=== PATIENT | male | born 1945 | race Native Hawaiian/Other Pacific Islander ===

== ENCOUNTER 2017-07-09 20:26 | Inpatient (IN) | payer MEDICARE, MEDICAID ==
[~2017-07-09] VITALS: Ht 182.9 cm; Wt 104.6 kg
[~2017-07-09 20:26] MED LIST: ATOR20TA50 PO; CANA100T PO; DOXE75CA2 PO; GAB100C PO; GLIP-116 PO; HYDR-531 PO; LISI-646 PO; METF-372 PO
[2017-07-09 22:49] LABS: Basophils # (auto) 0 uL; Basophils % (auto) 0.2 % (0.0-2.0); Eosinophils # (auto) 0.2 uL; Eosinophils % (auto) 1.5 % (0.0-7.0); Hematocrit 36.5 % (41.0-53.0); Hemoglobin 12.2 g/dL (13.5-17.5); Lymphocytes % (auto) 13.6 % (10.0-50.0); Mean Corpuscular Hemoglobin 29.5 pg (28.0-32.0); Mean Corpuscular Hgb Conc. 33.5 g/dL (32.0-36.0); Mean Corpuscular Volume 88.1 fL (80.0-100.0); Monocytes % (auto) 6.7 % (0.0-12.0); Neutrophils # (auto) 11.3 uL; Nucleated Red Blood Cells % 0.1 %; Platelet Count (auto) 226 10^3/uL (140-450); Red Blood Cells 4.15 10^6/uL (4.5-5.90); Red Cell Distribution Width 12.6 % (11.8-14.3); White Blood Cell 14.5 10^3/uL (4.4-10.8)
[2017-07-09 23:02] LABS: Alanine Aminotransferase 13 U/L (16-61); Albumin 2.8 g/dL (3.4-5.0); Anion Gap 12 (5-15); Aspartate Aminotransferase 19 U/L (15-37); BUN/Creatinine Ratio 12.9; Blood Urea Nitrogen 16 mg/dL (7-18); Calcium 8.4 mg/dL (8.5-10.1); Carbon Dioxide 22 mmol/L (21-32); Chloride 100 mmol/L (98-107); GFR African American 74 mL/min; GFR Non-African American 61 mL/min; Glucose 164 mg/dL (74-106); Potassium 4.2 mmol/L (3.5-5.1); Sodium 134 mmol/L (136-145)
[2017-07-09 23:07] LABS: Alkaline Phosphatase 93 U/L (45-117); Bilirubin, Total 0.4 mg/dL (0.2-1.0)
[2017-07-10 01:44] LABS: Urine Bacteria NONE SEEN /hpf (None Seen); Urine Blood Negative /uL (Negative); Urine Specific Gravity 1.025 (1.001-1.035); Urine WBC 1 /hpf (0 - 3)
[2017-07-10] MEDS ORDERED: LEVOFLOXACIN 750MG 150 ML IV ONE (02:30)
[2017-07-10] MEDS ORDERED: ONDANSETRON HCL 4 MG/2 ML VIAL IV PRN (05:30)
[2017-07-10] MEDS ORDERED: ACETAMINOPHEN 325 MG TAB PO PRN (05:30)
[2017-07-10] MEDS ORDERED: DOCUSATE SOD 100 MG CAP PO PRN (05:30)
[2017-07-10] MEDS ORDERED: TEMAZEPAM 15 MG CAP PO PRN (05:30)
[2017-07-10] MEDS ORDERED: DEXTROSE (50%) 50ML SYRG IV PRN (05:30)
[2017-07-10] MEDS: SODIUM CHLORIDE 0.9% 1,000 ML IV SCH ×2 (06:03→21:26)
[2017-07-10] MEDS: ACCU-CHEK COMFORT CURVE STRIP VI SCH ×3 (06:03→18:10)
[2017-07-10] MEDS: InsuLIN REG 1unit/0.01ml Soln (100units/ml) SC SCH ×3 (06:08→18:00)
[2017-07-10] MEDS: glipiZIDE 5 MG TAB PO SCH (07:21)
[2017-07-10] MEDS: ENOXAPARIN SOD 40 MG/0.4 ML SYRINGE SC SCH (09:08)
[2017-07-10] MEDS: FAMOTIDINE 20 MG TAB PO SCH ×2 (09:08→21:25)
[2017-07-10] MEDS: LISINOPRIL 20 MG TAB PO SCH (09:10)
[2017-07-10] MEDS: LEVOFLOXACIN 750MG 150 ML IV SCH (09:15)
[2017-07-10] MEDS: IPRATROPIUM BROM 0.5 MG/2.5ML INH SOL NEB SCH ×3 (14:01→18:10)
[2017-07-10] MEDS: ALBUTEROL SULF 2.5 MG/0.5ML(0.5%) NEB SOLN NEB SCH ×3 (14:01→18:10)
[2017-07-10 20:30] VITALS: BP 141/73
[2017-07-10 20:35] VITALS: BP 141/73
[2017-07-10] MEDS: ATORVASTATIN 20 MG TAB PO SCH (21:26)
[2017-07-11] MEDS: ACCU-CHEK COMFORT CURVE STRIP VI SCH ×4 (00:17→21:18)
[2017-07-11] MEDS: InsuLIN REG 1unit/0.01ml Soln (100units/ml) SC SCH ×4 (06:00→22:00)
[2017-07-11] MEDS: ALBUTEROL SULF 2.5 MG/0.5ML(0.5%) NEB SOLN NEB SCH ×4 (06:27→19:40)
[2017-07-11] MEDS: IPRATROPIUM BROM 0.5 MG/2.5ML INH SOL NEB SCH ×4 (06:27→19:40)
[2017-07-11] MEDS: glipiZIDE 5 MG TAB PO SCH (06:38)
[2017-07-11 06:51] LABS: Basophils # (auto) 0 uL; Basophils % (auto) 0.3 % (0.0-2.0); Eosinophils # (auto) 0.2 uL; Eosinophils % (auto) 2.9 % (0.0-7.0); Hematocrit 34.7 % (41.0-53.0); Hemoglobin 11.8 g/dL (13.5-17.5); Lymphocytes # (auto) 1.7 uL; Lymphocytes % (auto) 22.2 % (10.0-50.0); Mean Corpuscular Hemoglobin 29.9 pg (28.0-32.0); Mean Corpuscular Volume 87.9 fL (80.0-100.0); Monocytes # (auto) 0.7 uL; Monocytes % (auto) 8.5 % (0.0-12.0); Neutrophils # (auto) 5.1 uL; Neutrophils % (auto) 66.1 % (37.0-80.0); Platelet Count (auto) 248 10^3/uL (140-450); Red Blood Cells 3.95 10^6/uL (4.5-5.90); Red Cell Distribution Width 12.5 % (11.8-14.3); White Blood Cell 7.7 10^3/uL (4.4-10.8)
[2017-07-11 06:57] LABS: Potassium 4.3 mmol/L (3.5-5.1)
[2017-07-11 07:05] LABS: Albumin 2.4 g/dL (3.4-5.0); BUN/Creatinine Ratio 14.4; Calcium 8.4 mg/dL (8.5-10.1)
[2017-07-11 07:07] LABS: Bilirubin, Total 0.3 mg/dL (0.2-1.0); Total Protein 7.3 g/dL (6.4-8.2)
[2017-07-11 08:00] VITALS: BP 124/68
[2017-07-11 08:27] VITALS: BP 124/68
[2017-07-11] MEDS: LEVOFLOXACIN 750MG 150 ML IV SCH (11:07)
[2017-07-11] MEDS: SODIUM CHLORIDE 0.9% 1,000 ML IV SCH (11:07)
[2017-07-11] MEDS: FAMOTIDINE 20 MG TAB PO SCH ×2 (11:08→21:18)
[2017-07-11] MEDS: LISINOPRIL 20 MG TAB PO SCH (11:08)
[2017-07-11] MEDS: ENOXAPARIN SOD 40 MG/0.4 ML SYRINGE SC SCH (11:08)
[2017-07-11 11:47] VITALS: BP 127/71
[2017-07-11] MEDS ORDERED: DEXTROSE (50%) 50ML SYRG IV PRN (12:30)
[2017-07-11] MEDS: HYDROcodone-ACET 5/325MG TAB PO PRN ×2 (15:52→22:07)
[2017-07-11 16:59] VITALS: BP 145/74
[2017-07-11 20:00] VITALS: BP 142/78
[2017-07-11] MEDS: ATORVASTATIN 20 MG TAB PO SCH (21:18)
[2017-07-11 22:00] VITALS: BP 142/78
[2017-07-12] MEDS: HYDROcodone-ACET 5/325MG TAB PO PRN (03:03)
[2017-07-12] MEDS: SODIUM CHLORIDE 0.9% 1,000 ML IV SCH (03:03)
[2017-07-12 05:00] VITALS: BP 123/72
[2017-07-12] MEDS: ACCU-CHEK COMFORT CURVE STRIP VI SCH ×2 (06:11→11:30)
[2017-07-12] MEDS: glipiZIDE 5 MG TAB PO SCH (06:11)
[2017-07-12] MEDS: InsuLIN REG 1unit/0.01ml Soln (100units/ml) SC SCH ×2 (06:12→11:30)
[2017-07-12 06:44] LABS: Basophils # (auto) 0 uL; Basophils % (auto) 0.5 % (0.0-2.0); Eosinophils # (auto) 0.3 uL; Eosinophils % (auto) 5.6 % (0.0-7.0); Hematocrit 35.2 % (41.0-53.0); Hemoglobin 11.9 g/dL (13.5-17.5); Lymphocytes # (auto) 1.8 uL; Mean Corpuscular Hemoglobin 29.7 pg (28.0-32.0); Mean Corpuscular Hgb Conc. 33.7 g/dL (32.0-36.0); Mean Corpuscular Volume 88.3 fL (80.0-100.0); Monocytes # (auto) 0.7 uL; Monocytes % (auto) 12.3 % (0.0-12.0); Neutrophils # (auto) 2.9 uL; Neutrophils % (auto) 50.6 % (37.0-80.0); Platelet Count (auto) 281 10^3/uL (140-450); Red Blood Cells 3.99 10^6/uL (4.5-5.90); Red Cell Distribution Width 12.4 % (11.8-14.3); White Blood Cell 5.8 10^3/uL (4.4-10.8)
[2017-07-12] MEDS: IPRATROPIUM BROM 0.5 MG/2.5ML INH SOL NEB SCH ×5 (06:58→14:03)
[2017-07-12] MEDS: ALBUTEROL SULF 2.5 MG/0.5ML(0.5%) NEB SOLN NEB SCH ×5 (06:58→14:03)
[2017-07-12 07:15] LABS: Magnesium 2.5 mg/dL (1.6-2.6)
[2017-07-12 08:00] VITALS: BP 121/71
[2017-07-12] MEDS: FAMOTIDINE 20 MG TAB PO SCH (10:00)
[2017-07-12] MEDS: ENOXAPARIN SOD 40 MG/0.4 ML SYRINGE SC SCH (10:00)
[2017-07-12] MEDS: LISINOPRIL 20 MG TAB PO SCH (10:19)
[2017-07-12] MEDS: LEVOFLOXACIN 750MG 150 ML IV SCH (10:19)
[2017-07-12] MEDS ORDERED: LEVO750T2 PO (11:26)
[2017-07-12 11:37] VITALS: BP 139/75
[2017-07-12 12:42] VITALS: BP 121/71
[2017-07-13] MEDS ORDERED: LEVOFLOXACIN 250 MG TAB PO SCH (10:00)
== END 2017-07-12 14:45 | disposition home health service (06) | DRG 871 ==
LOC: EDBD 20:26 → ER 20:29 → OVERFLOW 20:30 → EAST 07-10 20:10
PROVIDERS: ADMIT Nurse Practitioner; ATTEND Internal Medicine
DX: A41.9 Sepsis, unspecified organism (principal); J18.9 Pneumonia, unspecified organism; E11.65 Type 2 diabetes mellitus with hyperglycemia; N39.0 Urinary tract infection, site not specified; E66.01 Morbid (severe) obesity due to excess calories; I10 Essential (primary) hypertension; E78.5 Hyperlipidemia, unspecified; Z68.31 Body mass index [BMI] 31.0-31.9, adult
CPT/HCPCS: 36415; 71045; 71046; 80053; 80061; 81001; 82962; 83036; 83605; 83735; 83880; 84443; 84484; 85025; 85379; 87400; 93005; 94640; 96365; 96366; 96372; 96375; J1815; J1956

== ENCOUNTER 2022-03-27 16:48 | Emergency (ER) | payer MEDICARE, MEDICAID ==
[~2022-03-27] VITALS: Ht 188 cm; Wt 105.5 kg
[~2022-03-27 16:48] MED LIST changes: -GLIP-116 PO; +GLIP10TA9 PO; +LEVO750T8 PO; -LISI-646 PO; +LISI20TA28 PO
[2022-03-27 18:42] LABS: Basophils # (auto) 0.1 10 ^3/uL (0-0.2); Basophils % (auto) 0.8 % (0.0-2.0); Eosinophils # (auto) 0.2 10 ^3/uL (0-0.8); Eosinophils % (auto) 2.4 % (0.0-7.0); Hematocrit 41.5 % (41.0-53.0); Hemoglobin 13.9 g/dL (13.5-17.5); Lymphocytes # (auto) 2.4 10 ^3/uL (0.4-5.4); Lymphocytes % (auto) 28.8 % (10.0-50.0); Mean Corpuscular Hemoglobin 28.7 pg (28.0-32.0); Mean Corpuscular Hgb Conc. 33.4 g/dL (32.0-36.0); Monocytes # (auto) 0.7 10 ^3/uL (0-1.3); Monocytes % (auto) 8.8 % (0.0-12.0); Neutrophils % (auto) 59.2 % (37.0-80.0); Nucleated Red Blood Cells % 0.1 %; Red Blood Cells 4.82 10^6/uL (4.5-5.90); Red Cell Distribution Width 13.1 % (11.8-14.3); White Blood Cell 8.5 10^3/uL (4.4-10.8)
[2022-03-27 18:59] LABS: Albumin 3.8 g/dL (3.4-5.0); Calcium 9.1 mg/dL (8.5-10.1); Magnesium 2.2 mg/dL (1.6-2.6)
[2022-03-27 19:08] LABS: BUN/Creatinine Ratio 9.7; Bilirubin, Total 0.3 mg/dL (0.2-1.0); Total Protein 7.9 g/dL (6.4-8.2)
[2022-03-27 20:20] LABS: Urine Bacteria NONE SEEN /hpf (None Seen); Urine Blood Negative /uL (Negative); Urine WBC 3 /hpf (0 - 3)
[2022-03-27] MEDS ORDERED: cefTRIAXone 1GM/50ML D5W 50 ML IV ONE (20:30)
[2022-03-27] MEDS ORDERED: HYDROcodone-ACET 5/325MG TAB PO ONE (20:30)
[2022-03-27] MEDS ORDERED: LACTATED RINGER'S 2,000 ML IV ONE (20:30)
[2022-03-27 22:30] VITALS: BP 165/82
== END 2022-03-27 23:13 | disposition home or self-care (01) ==
LOC: EDBD 16:50 → ER 16:50
DX: N17.9 Acute kidney failure, unspecified (principal); N32.0 Bladder-neck obstruction; I10 Essential (primary) hypertension; E11.9 Type 2 diabetes mellitus without complications; Z79.899 Other long term (current) drug therapy
CPT/HCPCS: 36415; 36600; 71045; 74176; 80053; 81001; 82805; 83605; 83615; 83690; 83735; 83880; 84484; 85025; 93005; 96365; 99285; J0696; J7030

== ENCOUNTER 2023-02-21 10:33 | Emergency (ER) | payer MEDICARE, MEDICAID ==
[~2023-02-21] VITALS: Ht 182.9 cm; Wt 100.0 kg
[~2023-02-21 10:33] MED LIST changes: -LISI20TA28 PO; +LISI20TA56 PO
[2023-02-21] MEDS ORDERED: IBUPROFEN 400 MG TAB PO ONE (13:45)
[2023-02-21 15:10] VITALS: BP 162/88; PULSE 90; RESP 18; TEMP 97.9; O2SAT 98
== END 2023-02-21 16:23 | disposition home or self-care (01) ==
LOC: EDBD 10:33 → ER 10:33
DX: S46.912A Strain of unspecified muscle, fascia and tendon at shoulder and upper arm level, left arm, initial encounter (principal); E11.9 Type 2 diabetes mellitus without complications; I10 Essential (primary) hypertension; X58.XXXA Exposure to other specified factors, initial encounter; Y93.89 Activity, other specified; Y92.89 Other specified places as the place of occurrence of the external cause; Y99.8 Other external cause status
CPT/HCPCS: 73030; 82962; 93005

== ENCOUNTER 2023-05-12 14:42 | Emergency (ER) | payer MEDICARE, MEDICAID ==
[~2023-05-12] VITALS: Ht 180.3 cm; Wt 90.7 kg
[2023-05-12 19:10] LABS: Basophils # (auto) 0 10 ^3/uL (0-0.2); Basophils % (auto) 0.7 % (0.0-2.0); Eosinophils # (auto) 0.2 10 ^3/uL (0-0.8); Eosinophils % (auto) 3.2 % (0.0-7.0); Hematocrit 39.5 % (41.0-53.0); Hemoglobin 13.2 g/dL (13.5-17.5); Lymphocytes # (auto) 2.4 10 ^3/uL (0.4-5.4); Lymphocytes % (auto) 37.7 % (10.0-50.0); Mean Corpuscular Hemoglobin 29.9 pg (28.0-32.0); Mean Corpuscular Hgb Conc. 33.4 g/dL (32.0-36.0); Mean Corpuscular Volume 89.4 fL (80.0-100.0); Monocytes # (auto) 0.6 10 ^3/uL (0-1.3); Monocytes % (auto) 9.7 % (0.0-12.0); Neutrophils # (auto) 3.1 10 ^3/uL (1.6-8.6); Neutrophils % (auto) 48.7 % (37.0-80.0); Red Blood Cells 4.42 10^6/uL (4.5-5.90); White Blood Cell 6.3 10^3/uL (4.4-10.8)
[2023-05-12 19:29] LABS: Alanine Aminotransferase 12 U/L (7-40); Albumin 4.1 g/dL (3.2-4.8); Alkaline Phosphatase 75 U/L (46-116); Anion Gap 5 (5-15); Aspartate Aminotransferase 12 U/L (13-40); BUN/Creatinine Ratio 11.9 (10.0-20.0); Bilirubin, Total 0.5 mg/dL (0.2-1.0); Blood Urea Nitrogen 16 mg/dL (9-23); Calcium 9.1 mg/dL (8.7-10.4); Carbon Dioxide 28 mmol/L (20-30); Chloride 104 mmol/L (98-107); Glucose 235 mg/dL (74-106); Potassium 4.4 mmol/L (3.5-5.1); Sodium 137 mmol/L (136-145); Total Protein 6.7 g/dL (5.7-8.2)
[2023-05-13 01:40] LABS: Urine Bacteria NONE SEEN /hpf (None Seen); Urine Blood Negative /uL (Negative); Urine Clarity Clear (Clear); Urine Color Colorless (Yellow); Urine Protein, UAD 2+ (Negative); Urine Specific Gravity 1.022 (1.001-1.035); Urine Urobilinogen Normal (Negative); Urine WBC <1 /hpf (0 - 3)
[2023-05-13] MEDS ORDERED: ACETAMINOPHEN 325 MG TAB PO ONE (02:30)
[2023-05-13] MEDS ORDERED: ACET500T58 PO (02:34)
[2023-05-13 03:38] VITALS: BP 150/84; PULSE 80; RESP 18; TEMP 97.9; O2SAT 97
[2023-05-13] MEDS ORDERED: ACET-1304 PO (03:53)
== END 2023-05-13 03:53 | disposition home or self-care (01) ==
LOC: EDUNIT# 14:42 → ER 14:42 → EDBD 14:42 → ER 05-13 03:53
DX: R53.1 Weakness (principal); R07.89 Other chest pain; M79.10 Myalgia, unspecified site; I10 Essential (primary) hypertension; E11.9 Type 2 diabetes mellitus without complications; R51.9 Headache, unspecified; Z79.84 Long term (current) use of oral hypoglycemic drugs; Z79.899 Other long term (current) drug therapy
CPT/HCPCS: 36415; 70450; 71046; 80053; 81001; 84484; 85025; 93005

== ENCOUNTER 2023-06-24 23:46 | Emergency (ER) | payer MEDICARE, MEDICAID ==
[~2023-06-24] VITALS: Ht 170.2 cm; Wt 99.8 kg
[~2023-06-24 23:46] MED LIST changes: +ACET-1304 PO; +ACET500T58 PO
[2023-06-25] MEDS ORDERED: IBUP1TAB4 PO (01:28)
[2023-06-25] MEDS ORDERED: KETOROLAC TROMETH 30 MG/ML 1ML VIAL IM ONE (01:30)
[2023-06-25 02:03] VITALS: BP 154/80; PULSE 82; RESP 18; TEMP 98; O2SAT 98
== END 2023-06-25 02:12 | disposition home or self-care (01) ==
LOC: ER 23:46
DX: M79.10 Myalgia, unspecified site (principal); E11.9 Type 2 diabetes mellitus without complications; I10 Essential (primary) hypertension
CPT/HCPCS: 96372; 99283; J1885

== ENCOUNTER 2023-11-11 15:01 | Inpatient (IN) | payer MEDICARE, MEDICAID ==
[~2023-11-11] VITALS: Ht 175.3 cm; Wt 102.1 kg
[~2023-11-11 15:01] MED LIST changes: +ACE3T PO; +IBUP-1455 PO; +IBUP1TAB4 PO
[2023-11-11] MEDS: SODIUM CHLORIDE 0.9% 1,000 ML IV ONE (15:45)
[2023-11-11 16:17] LABS: Basophils # (auto) 0 10 ^3/uL (0-0.2); Basophils % (auto) 0.6 % (0.0-2.0); Eosinophils # (auto) 0.2 10 ^3/uL (0-0.8); Eosinophils % (auto) 2.5 % (0.0-7.0); Hematocrit 37.8 % (41.0-53.0); Hemoglobin 12.7 g/dL (13.5-17.5); Lymphocytes % (auto) 31.7 % (10.0-50.0); Mean Corpuscular Hgb Conc. 33.5 g/dL (32.0-36.0); Mean Corpuscular Volume 86.5 fL (80.0-100.0); Monocytes # (auto) 0.7 10 ^3/uL (0-1.3); Monocytes % (auto) 10.7 % (0.0-12.0); Neutrophils # (auto) 3.4 10 ^3/uL (1.6-8.6); Neutrophils % (auto) 54.5 % (37.0-80.0); Red Blood Cells 4.37 10^6/uL (4.5-5.90); Red Cell Distribution Width 13.9 % (11.8-14.3); White Blood Cell 6.2 10^3/uL (4.4-10.8)
[2023-11-11 16:29] LABS: Chloride 97 mmol/L (98-107); Potassium 4.2 mmol/L (3.5-5.1); Sodium 132 mmol/L (136-145)
[2023-11-11 16:30] LABS: Anion Gap 4 (5-15); Calcium 9.5 mg/dL (8.5-10.1); Carbon Dioxide 31 mmol/L (20-30)
[2023-11-11 16:35] LABS: BUN/Creatinine Ratio 9.2 (10.0-20.0); Blood Urea Nitrogen 15 mg/dL (9-23)
[2023-11-11 16:44] LABS: Glucose 426 mg/dL (74-106)
[2023-11-11] MEDS: InsuLIN REG 1unit/0.01ml Soln (100units/ml) IV ONE (17:00)
[2023-11-12] MEDS ORDERED: MORPHINE SULFATE INJ 2 MG/ml SYRG IV PRN (00:15)
[2023-11-12] MEDS ORDERED: DOCUSATE SOD 100 MG CAP PO PRN (00:15)
[2023-11-12] MEDS ORDERED: HYDROcodone-ACET 5/325MG TAB PO PRN (00:15)
[2023-11-12] MEDS ORDERED: ONDANSETRON HCL 4 MG/2 ML VIAL IV PRN (00:15)
[2023-11-12] MEDS ORDERED: DEXTROSE (50%) 50ML SYRG IV PRN (00:15)
[2023-11-12] MEDS ORDERED: ACETAMINOPHEN 325 MG TAB PO PRN (00:15)
[2023-11-12] MEDS ORDERED: NITROGLYCERIN 0.4 MG SL TAB SL PRN (00:15)
[2023-11-12] MEDS: SODIUM CHLORIDE 0.9% 1,000 ML IV SCH (00:54)
[2023-11-12 03:59] VITALS: PULSE 85; RESP 14; O2SAT 97
[2023-11-12] MEDS: ACCU-CHEK COMFORT CURVE STRIP VI SCH (04:00)
[2023-11-12] MEDS: LISINOPRIL 20 MG TAB PO ONE (05:35)
[2023-11-12] MEDS: InsuLIN REG 1unit/0.01ml Soln (100units/ml) SC SCH (05:47)
[2023-11-12 06:46] LABS: Basophils # (auto) 0.1 10 ^3/uL (0-0.2); Basophils % (auto) 0.7 % (0.0-2.0); Eosinophils # (auto) 0.2 10 ^3/uL (0-0.8); Eosinophils % (auto) 2.6 % (0.0-7.0); Hematocrit 37.8 % (41.0-53.0); Hemoglobin 12.6 g/dL (13.5-17.5); Lymphocytes # (auto) 1.6 10 ^3/uL (0.4-5.4); Lymphocytes % (auto) 21.8 % (10.0-50.0); Mean Corpuscular Hemoglobin 28.8 pg (28.0-32.0); Mean Corpuscular Hgb Conc. 33.4 g/dL (32.0-36.0); Mean Corpuscular Volume 86.2 fL (80.0-100.0); Monocytes # (auto) 0.7 10 ^3/uL (0-1.3); Monocytes % (auto) 9.7 % (0.0-12.0); Neutrophils # (auto) 4.8 10 ^3/uL (1.6-8.6); Neutrophils % (auto) 65.2 % (37.0-80.0); Nucleated Red Blood Cells % 0.1 %; Red Blood Cells 4.38 10^6/uL (4.5-5.90); Red Cell Distribution Width 13.4 % (11.8-14.3); White Blood Cell 7.4 10^3/uL (4.4-10.8)
[2023-11-12 07:09] LABS: Albumin 3.9 g/dL (3.2-4.8); Alkaline Phosphatase 100 U/L (46-116); Anion Gap 6 (5-15); Aspartate Aminotransferase 11 U/L (13-40); BUN/Creatinine Ratio 8.3 (10.0-20.0); Bilirubin, Total 0.4 mg/dL (0.2-1.0); Blood Urea Nitrogen 12 mg/dL (9-23); Calcium 9.7 mg/dL (8.5-10.1); Carbon Dioxide 27 mmol/L (20-30); Chloride 101 mmol/L (98-107); Glucose 331 mg/dL (74-106); Potassium 3.9 mmol/L (3.5-5.1); Sodium 134 mmol/L (136-145)
[2023-11-12 07:22] LABS: Alanine Aminotransferase < 9 U/L (7-40)
[2023-11-12] MEDS: ASPirin 81 mg TAB PO SCH (10:23)
[2023-11-12] MEDS: LISINOPRIL 20 MG TAB PO SCH (10:24)
[2023-11-12 20:24] VITALS: BP 144/76; PULSE 81; RESP 18; TEMP 97.8; O2SAT 96
[2023-11-12] MEDS: ATORVASTATIN 20 MG TAB PO SCH (20:31)
[2023-11-12 21:51] LABS: Urine Bacteria FEW /hpf (None Seen); Urine Blood Negative /uL (Negative); Urine Clarity Clear (Clear); Urine Color Light-Yellow (Yellow); Urine Protein, UAD 2+ (Negative); Urine Specific Gravity 1.011 (1.001-1.035); Urine Urobilinogen Normal (Negative); Urine WBC <1 /hpf (0 - 3); Urine pH 6.5 (5.0-9.0)
[2023-11-12 22:27] VITALS: BP 149/86; PULSE 88; RESP 16; O2SAT 97
[2023-11-12 23:13] VITALS: BP 153/80; PULSE 84; RESP 17; TEMP 98.5; O2SAT 97
[2023-11-13] VITALS (7 sets, daily range): BP systolic 129–149; BP diastolic 68–85; PULSE 75–89; RESP 16–20; TEMP 97.7–98.9; O2SAT 96–98
[2023-11-13] MEDS ORDERED: hydrALAZINE HCL 20 MG/ML VL IV PRN (00:15)
[2023-11-13 06:17] LABS: Basophils # (auto) 0 10 ^3/uL (0-0.2); Basophils % (auto) 0.4 % (0.0-2.0); Eosinophils # (auto) 0.2 10 ^3/uL (0-0.8); Eosinophils % (auto) 2.4 % (0.0-7.0); Hematocrit 35.5 % (41.0-53.0); Hemoglobin 11.9 g/dL (13.5-17.5); Lymphocytes # (auto) 2.3 10 ^3/uL (0.4-5.4); Lymphocytes % (auto) 33.4 % (10.0-50.0); Mean Corpuscular Hemoglobin 29.1 pg (28.0-32.0); Mean Corpuscular Hgb Conc. 33.5 g/dL (32.0-36.0); Mean Corpuscular Volume 86.9 fL (80.0-100.0); Neutrophils # (auto) 3.4 10 ^3/uL (1.6-8.6); Neutrophils % (auto) 49.8 % (37.0-80.0); Red Blood Cells 4.08 10^6/uL (4.5-5.90); White Blood Cell 6.9 10^3/uL (4.4-10.8)
[2023-11-13 06:32] LABS: Albumin 3.2 g/dL (3.2-4.8); Alkaline Phosphatase 83 U/L (46-116); Anion Gap 5 (5-15); Aspartate Aminotransferase 14 U/L (13-40); BUN/Creatinine Ratio 10.7 (10.0-20.0); Bilirubin, Total 0.3 mg/dL (0.2-1.0); Blood Urea Nitrogen 14 mg/dL (9-23); Carbon Dioxide 25 mmol/L (20-30); Chloride 106 mmol/L (98-107); Potassium 3.8 mmol/L (3.5-5.1); Sodium 136 mmol/L (136-145)
[2023-11-13 06:38] LABS: Alanine Aminotransferase < 9 U/L (7-40); Glucose 185 mg/dL (74-106)
[2023-11-14 01:00] VITALS: BP 136/68; PULSE 71; RESP 14; TEMP 97.9; O2SAT 98
[2023-11-14 05:00] VITALS: BP 147/58; PULSE 69; RESP 20; TEMP 98.2; O2SAT 99
[2023-11-14 08:00] VITALS: PULSE 86
[2023-11-14 08:40] VITALS: BP 122/69; PULSE 86; RESP 16; TEMP 98.4; O2SAT 95
[2023-11-14 13:00] VITALS: BP 138/76; PULSE 81; RESP 18; TEMP 98.1; O2SAT 96
[2023-11-14 13:27] VITALS: BP 138/76; PULSE 81; RESP 18; TEMP 98.1; O2SAT 96
== END 2023-11-14 14:55 | disposition home or self-care (01) | DRG 638 ==
LOC: ER 15:01 → TELE 11-12 00:13 → EDBD 11-12 00:13 → TELE-EAST 11-12 23:13
PROVIDERS: ADMIT Nurse Practitioner Family; ATTEND Family Medicine
DX: E11.10 Type 2 diabetes mellitus with ketoacidosis without coma (principal); G45.9 Transient cerebral ischemic attack, unspecified; N17.9 Acute kidney failure, unspecified; I10 Essential (primary) hypertension; E86.0 Dehydration; E78.00 Pure hypercholesterolemia, unspecified; Z79.84 Long term (current) use of oral hypoglycemic drugs
CPT/HCPCS: 36415; 70450; 80048; 80053; 81001; 82962; 83036; 84484; 85025; 87086; 93005; 96361; 96374; G0378; J1815